=== PATIENT | female | born 1990 | race Caucasian/White ===

== ENCOUNTER 2017-12-15 19:36 | Emergency (ER) | payer BC ==
--- NOTE | 2017-12-15 21:57 | ED ---
Dizziness - HPI Summary HPI Summary: This patient is a 27 year old F presenting to [facility] with a chief complaint of dizziness since 2 days ago. Patient notes that she as seen at Urgent Care 1 day ago for cold symptoms. The patient rates the pain 0/10 in severity. Symptoms aggravated by nothing. Symptoms alleviated by nothing. Patient reports lightheadedness and fatigue. Patient denies fever or abd pain. Patient notes that she is currently on her period and that it typically is quite heavy. Patient notes that her period usually lasts 7 days and she typically goes through 3 tampons per day. Patient denies taking control and denies . Pt has hx of anemia. - History Of Current Complaint Chief Complaint: EDDizziness Stated Complaint: DIZZINESS/SOB/GENERAL Time Seen by Provider: 12/15/17 21:43 Hx Obtained From: Patient - Allergies/Home Medications Allergies/Adverse Reactions: Allergies Allergy/AdvReac Type Severity Reaction Status Date / Time MS Gluten Meal [Gluten Meal] Allergy diarrhea, Verified 06/13/14 16:54 dizzy MS Penicillins [Penicillins] Allergy dyspnea Verified 06/13/14 16:54 PMH/Surg Hx/FS Hx/Imm Hx Endocrine/Hematology History: Reports: Hx Anemia Respiratory History: Denies: Hx Chronic Obstructive Pulmonary Disease (COPD) Opthamlomology History: Reports: Hx Contacts or Glasses EENT History: Denies: Hx Deafness - Surgical History Surgery Procedure, Year, and Place: none Infectious Disease History: No Infectious Disease History: Denies: Traveled Outside the [place] in Last 30 Days - Family History Known Family History: Negative: Renal Disease, Seizure Disorder - Social History Alcohol Use: Occasionally Substance Use Type: Reports: None Smoking Status (MU): Never Smoked Tobacco Review of Systems Positive: Fatigue. Negative: Fever Positive: Nasal Discharge Negative: Abdominal Pain Negative: Rash Neurological: Other - lightheadedness, dizziness All Other Systems Reviewed And Are Negative: Yes Physical Exam - Summary Physical Exam Summary: VITAL SIGNS: Reviewed. GENERAL: Patient is a well-developed and nourished FEMALE who is lying comfortable in the stretcher. Patient is not in any acute respiratory distress. HEAD AND FACE: No signs of trauma. No ecchymosis, hematomas or skull depressions. No sinus tenderness. EYES: PERRLA, EOMI x 2, No injected conjunctiva, no nystagmus. EARS: Hearing grossly intact. Ear canals and tympanic membranes are within normal limits. MOUTH: Oropharynx within normal limits. NECK: Supple, trachea is midline, no adenopathy, no JVD, no carotid bruit, no c- spine tenderness, neck with full ROM. CHEST: Symmetric, no tenderness at palpation LUNGS: Clear to auscultation bilaterally. No wheezing or crackles. CVS: Regular rate and rhythm, S1 and S2 present, no murmurs or gallops appreciated. ABDOMEN: Soft, non-tender. No signs of distention. No rebound no guarding, and no masses palpated. Bowel sounds are normal. EXTREMITIES: FROM in all major joints, no edema, no cyanosis or clubbing. NEURO: Alert and oriented x 3. No acute neurological deficits. Speech is normal and follows commands. SKIN: Dry and warm Triage Information Reviewed: Yes Vital Signs On Initial Exam: Initial Vitals Temp Pulse Resp BP Pulse Ox 98.0 F 70 15 124/83 96 12/15/17 19:41 12/15/17 19:41 12/15/17 19:41 12/15/17 19:41 12/15/17 19:41 Vital Signs Reviewed: Yes Diagnostics - Vital Signs Vital Signs Temp Pulse Resp BP Pulse Ox 12/15/17 19:41 98.0 F 70 15 124/83 96 - Laboratory Result Diagrams: 12/15/17 22:03 12/15/17 22:03 Lab Statement: Any lab studies that have been ordered have been reviewed, and results considered in the medical decision making process. - EKG 22:02 Cardiac Rate: NL - at 61 bpm EKG Rhythm: Sinus Rhythm EKG Interpretation: sinus rhythm at 61 bpm with nml axis, nml intervals, and no ischemic change Re-Evaluation - Re-Evaluation 1st re-eval Re-Evaluation Time: 23:15 Change: Unchanged Comment: tried to stand pt up but she was dizzy and off balance Dizzy Course/Dx - Course Course Of Treatment: Pt is 27 y/o F reporting dizziness and lightheadedness. An EKG reveals sinus rhythm at 61 bpm with nml axis, nml intervals, and no ischemic changes. Upon re-evaluation at 23:15, patient was off balance and dizzy when she tried to stand up. Test results with no significant abnormalities. Patient will be discharged with prescription for Meclizine and follow up from her PCP. The patient is agreeable with this plan. - Diagnoses Provider Diagnoses: Benign positional vertigo Discharge - Sign-Out/Discharge Documenting (check all that apply): Patient Departure - discharge home - Discharge Plan Condition: Stable Disposition: HOME Prescriptions: Meclizine HCl 25 mg PO TID PRN #[id number] tab.[id number] PRN Reason: Dizziness Patient Education Materials: Vertigo (ED) Forms: *Work Release Referrals: [facility] [Primary Care Provider] - 2 Days Additional Instructions: Follow up with your primary care physician in 1-2 days. Return to the emergency department with any new or worsening symptoms. - Attestation Statements Document Initiated by Scribe: Yes Documenting Scribe: Hyun Javier Provider For Whom Scribe is Documenting (Include Credential): Corinna Orta MD Scribe Attestation: Hyun Shipman, scribed for Corinna Orta MD on 12/16/17 at 0026.
[2017-12-15 22:09] LABS: ABS Basophils 0 10^3/ul (0-0.2); ABS Eosinophils 0.2 10^3/ul (0-0.6); ABS Lymphocytes 1.8 10^3/ul (1.0-4.8); ABS Monocytes 0.6 10^3/ul (0-0.8); ABS Neutrophils 3.5 10^3/ul (1.5-7.7); ABS Nucleated RBC 0 10^3/ul; Eosinophil % 2.7 % (0-6); Hematocrit 39 % (35-47); Hemoglobin 12.5 g/dl (12.0-16.0); Lymphocyte % 29.7 % (25-47); Mean Corpuscular HGB Conc 32 g/dl (31-36); Mean Corpuscular Hemoglobin 28 pg (27-31); Mean Corpuscular Volume 89 fL (80-97); Mean Platelet Volume 9.2 um3 (7.4-10.4); Nucleated Red Blood Cells % 0.2; Platelet Count 262 10^3/ul (150-450); Red Blood Count 4.41 10^6/ul (4.00-5.40); Red Cell Distribution Width 15 % (10.5-15); White Blood Count 6.1 10^3/ul (3.5-10.8)
[2017-12-15 22:21] LABS: INR 0.94 (0.77-1.02)
[2017-12-15 22:25] LABS: EGFR Non-African American 109.1 (>60)
[2017-12-15 22:31] LABS: Urine Appearance Clear; Urine Blood Negative (Negative); Urine Color Colorless; Urine Ketones Negative (Negative); Urine Protein Negative (Negative); Urine Specific Gravity 1.002 (1.010-1.030); Urine Urobilinogen Negative (Negative)
[2017-12-15] MEDS ORDERED: Meclizine TAB* 12.5 MG PO ONE (23:17)
[2017-12-16 00:31] VITALS: BP 129/82
== END 2017-12-16 00:31 | disposition home or self-care (01) ==
LOC: ED 19:36
DX: H81.10 Benign paroxysmal vertigo, unspecified ear (principal); R53.83 Other fatigue; Z88.0 Allergy status to penicillin
CPT/HCPCS: 36415; 80053; 81003; 83735; 84702; 85025; 85610; 85730; 93005; 99283; A9270-GY

== ENCOUNTER 2018-09-16 20:59 | Emergency (ER) | payer BC ==
[2018-09-16 21:06] VITALS: BP 110/73
--- NOTE | 2018-09-16 21:23 | UC ---
UC General HPI - HPI Summary HPI Summary: C/O DIZZINESS, HAVING HARD TIME WALKING, FEELING WARM, DRINKING A LOT OF WATER AND URINATING A LOT. 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 - History of Current Complaint Chief Complaint: UCGeneralIllness Stated Complaint: DIZZY Time Seen by Provider: 09/16/18 21:13 Hx Obtained From: Patient Hx Last Menstrual Period: 1 MONTH AGO Onset/Duration: Sudden Onset, Lasting Hours Timing: Constant Onset Severity: Mild Current Severity: Mild Pain Intensity: 0 Associated Signs & Symptoms: Positive: Dizziness, Headache, Weakness - Allergy/Home Medications Allergies/Adverse Reactions: Allergies Allergy/AdvReac Type Severity Reaction Status Date / Time gluten Allergy DIARRHEA, Verified 09/16/18 21:07 DIZZY Penicillins Allergy DYSPNEA Verified 09/16/18 21:07 Home Medications: Home Medications NK [No Home Medications Reported] 09/16/18 [History Confirmed 09/16/18] PMH/Surg Hx/FS Hx/Imm Hx Previously Healthy: Yes - Surgical History Surgical History: None Surgery Procedure, Year, and Place: none - Family History Known Family History: Negative: Renal Disease, Seizure Disorder - Social History Alcohol Use: None Substance Use Type: None Smoking Status (MU): Never Smoked Tobacco Review of Systems All Other Systems Reviewed And Are Negative: Yes Constitutional: Positive: Fatigue Genitourinary: Positive: Frequency Physical Exam Triage Information Reviewed: Yes Appearance: No Pain Distress, Well-Nourished, Ill-Appearing Vital Signs: Initial Vital Signs Temp 98 F 09/16/18 21:03 Pulse 68 09/16/18 21:03 Resp 16 09/16/18 21:03 BP 110/73 09/16/18 21:03 Pulse Ox 100 09/16/18 21:03 Vital Signs Reviewed: Yes Eye Exam: Normal ENT Exam: Normal ENT: Positive: Pharyngeal erythema, TMs normal Dental Exam: Normal Neck exam: Normal Respiratory Exam: Normal Respiratory: Positive: Chest non-tender, Lungs clear, Normal breath sounds Cardiovascular Exam: Normal Cardiovascular: Positive: No Murmur, Pulses Normal Abdominal Exam: Normal Abdomen Description: Positive: Nontender, No Organomegaly, Soft Bowel Sounds: Positive: Present Musculoskeletal: Positive: Other: - weak Neurological Exam: Normal Psychological Exam: Normal Skin: Positive: Other - sunburn on shoulders and legs Course/Dx - Course Course Of Treatment: hx obtained, exam performed ,meds reviewed, ua obtained, hx and urine point toward fluid overload and signs of mild hyponatremia advised to go home and limit fluid intake and eat. her food intake vwas very small today and she drank over 3 L of water today - Diagnoses Provider Diagnosis: Hyponatremia Discharge - Sign-Out/Discharge Documenting (check all that apply): Patient Departure All imaging exams completed and their final reports reviewed: No Studies - Discharge Plan Condition: Stable Disposition: HOME Patient Education Materials: Hyponatremia (ED) Referrals: No Primary Care Phys,NOPCP [Primary Care Provider] - Additional Instructions: 1.Rest and intake some good salty foods 2. Limit your fluids today and tomorrow 3. You blood work will be back tomorrow and I will follow it and call you if anything more action needs to be taken 4. Report to ER if symtpoms worsen - Billing Disposition and Condition Condition: STABLE Disposition: Home
[2018-09-17 14:40] LABS: Albumin 4.4 g/dL (3.2-5.2); BUN/Creatinine Ratio 15.3 (8-20); Calcium 9.3 mg/dL (8.6-10.3); EGFR African American 97.8 (>60); EGFR Non-African American 80.8 (>60); Globulin 2.2 g/dL (2-4); Potassium 4.1 mmol/L (3.5-5.0); Total Bilirubin 0.2 mg/dL (0.2-1.0); Total Protein 6.6 g/dL (6.4-8.9)
== END 2018-09-16 22:02 | disposition home or self-care (01) ==
LOC: UCEAST 20:59
DX: E87.1 Hypo-osmolality and hyponatremia (principal); Z91.040 Latex allergy status
CPT/HCPCS: 36415; 80053; 81003; 84702; 99211; G0463